=== PATIENT | female | born 1990 | race Caucasian/White ===

== ENCOUNTER 2016-08-08 08:49 | Emergency (ER) | payer OTHER ==
[~2016-08-08] VITALS: Ht 160 cm; Wt 95.9 kg
[~2016-08-08 08:49] MED LIST: DIPH25CA6 PO; FLUO10TA PO; HYDR50TA76 PO; IBUP800T28 PO; LAMO200T2 PO; MDR150V IM; OMEP20CA11 PO; OXCA300T2 PO
[2016-08-08 09:06] VITALS: BP 139/78; PULSE 101; RESP 18; O2SAT 99
--- NOTE | 2016-08-08 09:32 | ED.REPORT ---
HPI-Eye Problem Date of Service Aug 08, 2016 ED Provider: Gamal Puckett MD Pt is a generally healthy 26 y/o female presenting to the ED c/o bilateral clear eye discharge and crusting onset 1 week ago. The patient has been seen by Urgent Care twice since onset and is told that she is having an allergic reaction and has been using OTC eyedrops. Today she woke up and her eyes were "glued shut" so she decided to be seen. Pt c/o associated mild blurry vision and pain of the right eye. She denies foreign body, fever, chills. Nursing Notes Stated Complaint: EYE ISSUE Chief Complaint: Eye Nursing Notes Reviewed: Yes Allergies: Coded Allergies: Sulfa (Sulfonamide Antibiotics) (Verified Allergy, Unknown, 12/15/14) tramadol (Verified Allergy, Unknown, 12/15/14) Scheduled Fluoxetine (Fluoxetine) 10 Mg Tablet 10 MG PO DAILY Hydroxyzine HCl (HydrOXYzine Hcl) 50 Mg Tablet 100 MG PO TID Lamotrigine (Lamotrigine) 200 Mg Tablet 200 MG PO BID Medroxyprogesterone Acetate (Depo-Provera) 150 Mg/Ml Depoinj 150 MG IM q3mos Omeprazole (Omeprazole) 20 Mg Capsule.dr 20 MG PO DAILY Oxcarbazepine (Oxcarbazepine) 300 Mg Tablet 300 MG PO BID Polymyxin B Sulf/Trimethoprim (Polytrim Eye Drops) 10 Ml Drops 10 ML OP 5XD Scheduled PRN Ibuprofen (Ibuprofen) 800 Mg Tablet 800 MG PO TID PRN PRN For Pain diphenhydrAMINE HCl (Benadryl) 25 Mg Capsule 50 MG PO Q4 PRN PRN allergy sx General Time Seen by MD: 09:16 Chief Complaint Both eyes affected Hx Obtained From: Patient Arrived By: Walk-in Sudden in Onset?: No Onset Occurred: 1 week ago Symptom Duration: Since onset Progression Since Onset: Constant Location: : Eye right Quality: Painful Severity: Current: Mild Severity: Maximum: Mild Past Medical History Past Medical History Notes: with spontaneous at 6 weeks. Past Medical History TMJ disease Mild asthma Chronic smoker's cough Hemorrhoids Bipolar disorder Depression Anxiety Past Surgical History None reported Family History non-contributory Smoking History Current Every Day Smoker Social History Alcohol Use: Denies alcohol use Drug Use: Meth, THC Other Social History: Lives with children, Local resident Ambulatory Status Independent Review of Systems Constitutional: Denies: Chills, Fever Eyes: Reports: Blurred right, Discharge bilateral, Eye pain right, Redness bilateral, Denies: Visual loss bilateral Complete sys rev & neg: except as marked. Respiratory: Denies: Shortness of breath Cardiovascular: Denies: Chest pain GI: Denies: Abdominal pain Physical Exam Initial Vital Signs Vital Signs (First) Date Time Temp Pulse Resp B/P Pulse Ox O2 Delivery O2 Flow Rate FiO2 08/08/16 09:06 36.4 101 18 139/78 99 Room Air Initial VS: Reviewed, Vital signs normal ENT: Mucous membranes moist, Conjunctiva normal, No scleral icterus Neck: Supple, Full range of motion Respiratory: No respiratory distress Cardiovascular: Intact distal pulses Abdomen / GI: Soft, No distention Extremities: Vascular intact, Neuro intact, No swelling Skin: Warm, Dry, No cyanosis Neurologic: Alert, Oriented, Nonfocal Psychiatric: Mood/affect normal, Behavior normal, Normal thought content Head / Eyes: Atraumatic, Normocephalic, PERRL, EOMI, No periorbital swelling, No scleral icterus Diffuse conjunctival injection R>L No foreign body General/Constitutional: Awake, Alert, No acute distress, Well appearing, Cooperative, Not toxic appearing Re-Eval/Medical Decision Med Decision/Clinical Course Conjunctivis. Antibiotics as below. Return precautions given if any blurry vision, eye pain, any other new or worsening symptoms. Return precautions given. Recommend follow-up with primary doctor tomorrow for follow-up with ophthalmology if symptoms worsen in the next 2 days. Re-Evaluation/Progress : Time of Eval: 09:56 Re-Evaluation/Progress Note: Pt rechecked. Informed pt of plan for treatment. Pt understands and agrees with plan for treatment. F/U instructions and RTER warnings given. All questions addressed. Counseled Regarding: Diagnosis, Need for follow-up, When/why to return to ED Discharge & Departure Primary Impression: Conjunctivitis Conjunctivitis type: acute Acute conjunctivitis type: viral Laterality: bilateral Qualified Code: B30.9 - Viral conjunctivitis, unspecified Disposition: Home Discharge Condition All VS Reviewed: Yes Condition: Stable Patient Instructions: Conjunctivitis (ED) Additional Instructions: You have conjunctivitis, otherwise known as pink eye. This is likely viral but possibly bacterial. This condition is contagious so you should make sure to wash your hands after touching your eyes. Use the eyedrops as prescribed. You can stop the other eyedrops. Return to the emergency department for severe pain, vision loss, high fever, or for other concerning symptoms. Follow-up with your primary care doctor tomorrow if your symptoms do not improve. You can follow-up with [place] [facility] if your symptoms persist. Referrals: Juan Wan DO (PCP) [facility] Att[facility] Portions of this note were transcribed by Logan Abreu. I, Dr. Puckett, personally performed the history, physical exam and medical decision-making; I reviewed and confirmed the accuracy of the information in the transcribed note. Signed by Valeria Acosta, 08/08/16 - 1000 copies to: Juan Wan Ben M MD Aug 08, 2016 09:31 LOGAN ABREU Aug 08, 2016 09:55
[2016-08-08] MEDS ORDERED: POLY10DR21 OP (10:00)
[2016-08-08 10:12] VITALS: PULSE 85; RESP 16; O2SAT 98
== END 2016-08-08 10:09 | disposition home or self-care (01) ==
LOC: SED 08:49
DX: B30.9 Viral conjunctivitis, unspecified (principal); J45.909 Unspecified asthma, uncomplicated; F31.9 Bipolar disorder, unspecified; F41.9 Anxiety disorder, unspecified; F32.9 Major depressive disorder, single episode, unspecified; F17.200 Nicotine dependence, unspecified, uncomplicated; Z88.2 Allergy status to sulfonamides; Z88.8 Allergy status to other drugs, medicaments and biological substances

== ENCOUNTER → 2016-10-22 | Day surgery (SDC) | payer OTHER ==
[~2016-10-22] VITALS: Ht 160 cm; Wt 91.6 kg
[2016-10-22] VITALS (11 sets, daily range): BP systolic 104–141; BP diastolic 55–93; PULSE 76–98; RESP 11–16; O2SAT 94–99
[~2016-10-22] MED LIST changes: +Albuterol 2.5 mg/3 mL Inhalation Solution NEB ONE; +BETA15CR38 TP; +Benzocaine-Menthol Lozenge 2/Pkg PO PRN; +Bupivacaine-MPF 0.5% 30 mL Inj INFILTRATE ONE; +CETI10CA PO; -DIPH25CA6 PO; +Dexamethasone 4 mg/mL Inj IVPUSH PRN; +Dexamethasone 4 mg/mL Inj ONE; +EPHEDrine Sulfate 50 mg/mL Inj IVPUSH PRN; -FLUO10TA PO; +GABA600T2 PO; +Glycopyrrolate 0.2 MG/ML 1mL Inj ONE; -HYDR50TA76 PO; +HYDROmorphone 1 mg/mL Inj IVPUSH PRN; -LAMO200T2 PO; +LITH300T2 PO; +Lactated Ringer's 1,000 ML IV SCH; +Lactated Ringer's 500 ML IV PRN; -MDR150V IM; +MetoCLOpramide 5 mg/mL 2 mL Inj IVPUSH PRN; +Neostigmine 1 mg/mL 10 mL Inj ONE; -OMEP20CA11 PO; -OXCA300T2 PO; +OXYC1TAB24 PO; +Ondansetron 2 mg/mL 2 mL Inj IVPUSH PRN; +Ondansetron 2 mg/mL 2 mL Inj ONE; +Phenylephrine 10,000 mCg/mL Inj IVPUSH PRN; +Propofol 10,000 mCg/mL 20 mL Inj ONE; +Rocuronium 10 mg/mL 5 mL Inj ONE; +TRET45GE TP; +fentaNYL-PF 50 mCg/mL 2 mL Inj IVPUSH PRN; +fentaNYL-PF 50 mCg/mL 2 mL Inj ONE; +oxyCODONE-Acetamin 5-325 mg Tablet PO PRN
[2016-10-22] MEDS: Lactated Ringer's 1,000 ML IV SCH ×2 (05:34→07:28)
--- NOTE | 2016-10-22 07:55 | PCM.HPANE ---
Patient Data Date of Service: Oct 22, 2016 Surgeon Admitting Provider: Attending Provider:Tiffanie Ríos MD Primary Care Physician:Juan Wan DO Other Provider:Eder Cedeno Anesthesia Reason for Visit Family Planning Ht/WT & BMI Height (Feet): 5 Height (Inches): 3.00 Weight (Kilograms): 91.6 Body Mass Index 35.00 Allergies Coded Allergies: Sulfa (Sulfonamide Antibiotics) (Verified Allergy, Unknown, 10/14/16) tramadol (Verified Allergy, Unknown, 10/14/16) Past Anesthesia History Anesthesia History: Denies:: Abnormal Airway, Anesthesia Reactions (no prior ) , Difficult Intubation, Fam Anesthesia Reaction Diabetes History Hx Diabetes?: No MRSA MRSA: Yes (hx of 2 years ago- ) Medications Home Meds Incl Beta John Paul: No Reported Medications Tretinoin 0.05 % Gel..gram.45 Gm TP PRN skin irritation 10/14/16 Sabinal Carbonate 300 Mg [id number] Mg PO DAILY 10/14/16 Gabapentin 600 Mg [id number] Mg PO DAILY Ref 0 10/14/16 Cetirizine HCl (Zyrtec)10 Mg [id number] Mg PO HS #30 CAPSULE Ref 0 10/14/16 Betamethasone/Propylene Glyc (Betamethasone Dp Aug 0.05% Crm)15 Gm Cream..g.15 Gm TP PRN skin irritation 10/14/16 History History of ENT Problems?: No HEENT History: Positive for:: TMJ (grinds, no nightguard) Denies:: Abnormal Airway Cataracts Difficult Intubation Dysphagia ("gags" easily) Hearing Problem Sinus Problem Denture Type: None Teeth Condition: Within Normal Limits Hx of Heart Problems?: No Cardiovascular History: Denies:: AICD Abdominal Aortic Aneurism Atrial Fibrillation Chest Pain Congestive Heart Failure Heart Murmur Hypertension Irregular Heartbeat Pacemaker Hx of Respiratory Problem?: Yes Respiratory History: Positive for:: Asthma ("slight" case per pt- no inhalers) Cough ("smoker") Denies:: COPD Emphysema Oxygen Administration Pneumonia Tuberculosis Use of C-PAP Machine (refuses sleep study- knows she cannot wear machine) Hx Neurologic Problems?: No Neurological History: Denies:: CVA Dementia Dizziness Headaches Multiple Sclerosis Parkinson's Disease Seizures Hx of GI Problems?: Yes Hx of Problems?: No Genitourinary History: Denies:: Kidney Stones Urinary Tract Infection Female Hx: Denies:: Currently Skin History: Denies:: History Skin Disorders? Pressure Ulcers Hx Musculoskeletal Problems?: No Musculoskeletal History: Denies:: Back Injury Degenerative Joint Joint Replacement Musculoskeletal Trauma Systemic Lupus Hx of Psycho/Social Problems?: Yes Psycho Social History: Positive for:: Bipolar Disorder Hx Depression Hx Surgeries?: No (no prior ) Hx Any Other Health Problems?: Yes Other History: Denies:: Cancer Thyroid Disease History Blood Transfusions: Denies:: Blood Transfusions Hx Diabetes: No Hx Alcohol Use: YesHx Substance Use: Yes (marijuana daily- 3 bowls) Smoking Status: Current Every Day Smoker Have You Smoked inLast 12 mo: Yes Stop/Bang Treated for Sleep Apnea?: No Do You Have a CPAP Machine?: No S-Snoring: Do You Snore Loudly: No T-Tired: feel tired, fatigued: No O-Obsered: Observed not breath: No P-Blood Pressure: treated: No B- Body Mass Index > 35 kg/m2: No A- Age over 50: No N- Neck Large Circumference: No G- Gender Male: No ANTONIA Total Score: 0 Risk Assessment Category Category 1A: Patient has history of documented sleep apnea, and HAS NOT received any narcotic, sedative or anesthesia administration during this stay. Category 1B: Patient has history of documented sleep apnea, and HAS received any narcotic , sedative or anesthesia administration during this stay Category 2: Patient has SUSPECTED Obstructive Sleep Apnea, and HAS received any narcotic , sedative or anesthesia administration during this stay. Category 3: Patient has SUSPECTED Obstructive Sleep Apnea and HAS NOT received narcotic, sedative or anesthesia administration during this stay. Category 4: Outpatient in Procedural Areas with known sleep apnea or who screen positive for High Risk via the STOP/BANG questionnaire. Exam Exam Vital Signs Vital Signs Date Time Temp Pulse Resp B/P Pulse Ox O2 Delivery O2 Flow Rate FiO2 10/22/16 05:54 36.0 80 16 141/78 98 Room Air General Appearance: Alert, Oriented X3, Cooperative HEENT/AIRWAY: MP 2 Lungs: Clear to Auscultation Heart: Exam Unremarkable Meds/Labs/Diagnostics Admission Meds Current Medications Lactated Ringer's (Lr) 1,000 ml @ 120 mls/hr Q8H20M IV Last administered on t 05:34; Start 10/22/16 at 05:00; Stop 10/22/16 at 13:19 Plan Impression Patient chart reviewed, patient interviewed and anesthestic plan with risks, benefits, and alternatives discussed, and informed consent obtained. NPO per Anesth. Guidelines: Yes ASA Physical Status: ASA2 Mod Systemic Disease Anesthetic Plan: GA, TIVA Bene/Risks/Altern/Consents: Yes HP Complete Prior to Induction: Yes Barrington Cardona MD Oct 22, 2016 07:55
--- NOTE | 2016-10-22 08:53 | PCM.DIGYN ---
Surgical Discharge Instruction Dates of Hospitalization Date of Hospital Admission 10/22/2016 Providers Admitting Physician: Primary Care Physician: Juan Wan DO Attending Physician: Tiffanie Ríos MD Diagnosis at Time of Discharge Diagnosis at time of discharge Sterilization Problems: Diet Discharge Diet: No restrictions Activity Discharge Activity-General: Balance rest and activity, No lifting >10 pounds for 4-6 weeks Dressing and Incisional Care Hygiene: May shower, Wash incision with soap & water, DO NOT soak incision under water Follow Up Plan Follow-up appointment: Weeks (2) Call your provider for: Fever, Chills, Shortness of breath, Drainage at incision, Wound redness, Increasing pain Additional Information You may have some vaginal bleeding after your procedure. There was an instrument placed inside your cervix to assist in the procedure. This should resolve on its own. Tiffanie Ríos MD Oct 22, 2016 08:53
--- NOTE | 2016-10-22 09:52 | PCM.ANEP1 ---
Post Anesthesia PACU Phase 1 Assessment Vital Signs Vital Signs Date Time Temp Pulse Resp B/P Pulse Ox O2 Delivery O2 Flow Rate FiO2 10/22/16 09:44 94 16 127/62 96 Room Air 10/22/16 09:42 90 16 127/62 94 Room Air 10/22/16 09:35 36.9 96 14 110/61 99 Room Air 10/22/16 09:30 98 15 120/93 98 Room Air 10/22/16 09:15 98 11 104/55 94 Room Air 10/22/16 09:10 36.6 97 11 109/60 99 Room Air 10/22/16 09:05 78 16 113/56 99 Room Air 10/22/16 09:00 76 15 97 Room Air 10/22/16 08:50 83 14 104/66 97 Room Air 10/22/16 08:45 36.6 83 13 109/75 96 Nasal Cannula 2 10/22/16 05:54 36.0 80 16 141/78 98 Room Air Anesthetic Administered: TIVA Level of Alertness: Awake, talking Pain: No Nausea or Vomiting: No CV Function & Hydration Stable: Yes Airway Device: Oxygen Delivery: Nasal Cannula Lungs: Coarse, Wheezes (albuterol nebulizer ordered) PACU Phase 2 Assessment Patient Instructions Provided: N/A Barrington Cardona MD Oct 22, 2016 09:52
--- NOTE | 2016-10-22 17:50 | OP ---
[address] [address] OPERATIVE REPORT PATIENT: SEBASTIAN AUSTIN : 1990 MR#: [id number] ADMIT: 10/22/2016 JOB ID: [id number] DATE OF SURGERY: 10/22/2016 SURGEON: Tiffanie Ríos MD AUTO APPRAISER: Beny Montelongo, PGY-II PREOPERATIVE DIAGNOSIS(ES): 1. Sterilization. 2. Multiparity. POSTOPERATIVE DIAGNOSIS(ES): 1. Sterilization. 2. Multiparity. PROCEDURE PERFORMED: Laparoscopic bilateral tubal ligation using fulguration. ANESTHESIA: General. ESTIMATED BLOOD LOSS: 0.2 mL. COMPLICATIONS: None. PATHOLOGY SENT: None. FINDINGS AT TIME OF SURGERY: Exam under anesthesia showing normal-appearing vagina and cervix. The intraoperative findings showing normal-appearing uterus, fallopian tubes, and ovaries bilaterally. Survey of the upper abdomen was within normal limits. The appendix was not clearly visualized today. INDICATION FOR PROCEDURE: The patient is a 26-year-old, 3, now para 2-0-1-2, who desires permanent sterilization. PROCEDURE IN DETAIL: Patient was taken to the operating room, where her general anesthesia was obtained without difficulty. She was placed in a lithotomy position in the [facility] and prepared and draped in the normal sterile fashion. A surgical time-out was performed. A speculum was inserted in the patient's vagina and the cervix was identified and a Hulka uterine manipulator was inserted without difficulty. Our attention was then turned to patient's abdomen, where the umbilicus was injected with 10 mL of 0.5% Marcaine. A Veress needle was inserted at the base of patient's umbilicus. Needle aspirate and water drop test were confirmatory negative. The gas was turned on. Opening pressures were low. The pneumoperitoneum was obtained with CO2 gas to 50 mmHg. A Veress needle was removed. An 11 mm skin incision was made at the base of patient's umbilicus and an 11 mm Applied balloon trocar was inserted under direct visualization. Intraperitoneal placement was confirmed with the laparoscope. Survey of the upper abdomen and pelvis were noted as above. The patient was then placed in Trendelenburg and the uterus was elevated. Both Fallopian tubes were identified and followed out to the fimbriated end. The bipolar cautery device was then used to fulgurate 3-4 cm of the mid isthmic portion of the left and right fallopian tube. This completed the procedure. All instruments were removed from the patient's peritoneal cavity. Pneumoperitoneum was released. The fascia was reapproximated with 0-Vicryl suture in a [id number] fashion. Skin was closed with 4-0 Monocryl in subcuticular fashion. Dermabond applied. All lap, instrument, and needle counts correct x2 at the end of the procedure and patient was taken to recovery room in good condition.
== END | disposition home or self-care (01) ==
LOC: SAS 05:32
PROVIDERS: ATTEND Obstetrics & Gynecology
DX: Z30.2 Encounter for sterilization (principal); F31.9 Bipolar disorder, unspecified; F17.210 Nicotine dependence, cigarettes, uncomplicated; F12.90 Cannabis use, unspecified, uncomplicated; Z87.898 Personal history of other specified conditions; Z87.440 Personal history of urinary (tract) infections; Z86.14 Personal history of Methicillin resistant Staphylococcus aureus infection
CPT/HCPCS: 58670; J1100; J1170; J1885; J2175; J2250; J2405; J2704; J2710; J3010; J7120; J7613